=== PATIENT | male | born 1960 | race Caucasian/White ===

== ENCOUNTER → 2022-06-05 07:27 | Outpatient (CLI) | payer OTHER, SELFPAY ==
--- NOTE | 2022-06-05 07:36 | DI.MRI.S_ITS ---
PROCEDURE: MR KNEE RT WO CON INDICATIONS: RT. KNEE PAIN TECHNIQUE: Noncontrast sagittal PD fast spin echo and T2 fast spin echo with fat saturation, sagittal 3-D FLASH with fat saturation; coronal T1 spin echo and PD fast spin echo with fat saturation, and axial PD fast spin echo with fat saturation through the knee. COMPARISON: [facility] [place], CR, XR KNEE 4+ VIEWS RIGHT, 05/28/2022, 10:25. FINDINGS: Image quality: Excellent. Menisci: Amorphous high signal intensity within the peripheral 3rd of the medial meniscal body is present demonstrating inferior articular surface extension, indicating degenerative tearing. Amorphous high signal intensity within the middle and inner thirds of the posterior horn lateral meniscus at the meniscal root ligament insertion site is present, demonstrating inferior articular surface extension, indicating degenerative tearing. Cruciate ligaments: The anterior and posterior cruciate ligaments appear intact. Medial structures: The medial collateral ligament appears intact. Visualized portions of the pes anserinus tendons appear normal. No abnormal bursal fluid. Lateral structures: The lateral collateral ligament demonstrates mild T2 signal elevation at the femoral origin. The long and short heads of the biceps femoris tendon appear intact. The popliteus tendon appears normal. Iliotibial band appears normal. Anterior structures: The quadriceps and patellar tendons appear intact. Patellar alignment is normal. No femoral trochlear dysplasia or ventral trochlear prominence. No edema in the infrapatellar fat pad. Bones and cartilage: No bone marrow contusions or fractures. Intraosseous ganglia within the patellar apex and lateral patellar facet are present. Mild articular cartilage loss diffusely overlies the weight-bearing aspects of the medial and lateral compartments. Moderate to severe articular cartilage loss overlies the patellar apex and lateral patellar facet. Moderate articular cartilage loss overlies the medial patellar facet. Joint space: There is physiologic knee joint fluid. No Johnson's cyst. Normal appearing synovial plicae are incidentally noted. IMPRESSION: 1. Medial and lateral meniscal tearing as described above. 2. Low-grade partial thickness lateral collateral ligament tear. 3. Tricompartmental osteoarthritis with associated articular cartilage loss. Dictated by: Hawa Dos Santos M.D. on 06/08/2022 at 9:40 Approved by: Hawa Dos Santos M.D. on 06/08/2022 at 9:42
== END ==
PROVIDERS: Referring Provider Orthopaedic Surgery; Visit Provider Orthopaedic Surgery
DX: M25.561 Pain in right knee (principal); S83.281A Other tear of lateral meniscus, current injury, right knee, initial encounter; S83.241A Other tear of medial meniscus, current injury, right knee, initial encounter; S83.421A Sprain of lateral collateral ligament of right knee, initial encounter; M17.11 Unilateral primary osteoarthritis, right knee
CPT/HCPCS: 73721

== ENCOUNTER → 2023-08-18 11:26 | Outpatient (CLI) | payer OTHER, SELFPAY ==
--- NOTE | 2023-08-18 | DI.MRI.S_ITS ---
PROCEDURE: MR KNEE RT WO CON INDICATIONS: PAIN IN RIGHT KNEE TECHNIQUE: Noncontrast sagittal PD fast spin echo and T2 fast spin echo with fat saturation, sagittal 3-D FLASH with fat saturation; coronal T1 spin echo and PD fast spin echo with fat saturation, and axial PD fast spin echo with fat saturation through the knee. COMPARISON: [facility], MR, MR KNEE RT WO CON, 06/05/2022, 8:44. FINDINGS: Image quality: Excellent. Menisci: There is signal abnormality involving posterior horn of medial meniscus extending to inferior articulating surface new since previous study series 11 image 24 concerning for oblique tear. The lateral meniscus is intact. The meniscal root ligaments appear intact. Cruciate ligaments: The anterior cruciate ligament is thickened with subtle intrasubstance T2 hyperintense signal. The posterior cruciate ligament is intact. Medial structures: The medial collateral ligament appears intact. The posterior oblique ligament, semimembranosus tendon insertions, oblique popliteal ligament, and meniscocapsular junction appear intact. Visualized portions of the pes anserinus tendons appear normal. No abnormal bursal fluid. Lateral structures: The lateral collateral ligament, long and short heads of the biceps femoris tendon appear intact. The popliteus tendon appears normal; the popliteofibular ligament appears intact. Iliotibial band appears normal. Anterior structures: The quadriceps and patellar tendons appear intact. Patellar alignment is normal. No femoral trochlear dysplasia or ventral trochlear prominence. No edema in the infrapatellar fat pad. Bones and cartilage: No bone marrow contusions or fractures. [id number] tricompartmental osteoarthritis and chondromalacia is seen more notably in medial femoral tibial compartment and patellofemoral compartment near apex. Joint space: There is small to moderate knee joint fluid. No Johnson's cyst. Normal appearing synovial plicae are incidentally noted. IMPRESSION: 1. Suggestion of oblique tear involving posterior horn of medial meniscus extending to inferior articulating surface. No lateral meniscal tear. 2. [id number] tricompartmental osteoarthritis and chondromalacia more notably in medial femoral tibial compartment and patellofemoral compartment near apex. No fracture or dislocation. Small to moderate joint effusion, no loose bodies. 3. Thickened ACL with intrasubstance T2 hyperintense signal suggestive of ACL sprain/degenerative changes. No ACL rupture. The PCL is intact. Dictated by: Manny Farrar M.D. on 08/18/2023 at 14:08 Approved by: Manny Farrar M.D. on 08/18/2023 at 14:44
== END ==
PROVIDERS: Referring Provider Orthopaedic Surgery Adult Reconstructive Orthopaedic Surgery; Visit Provider Orthopaedic Surgery Adult Reconstructive Orthopaedic Surgery
DX: M17.11 Unilateral primary osteoarthritis, right knee (principal); M22.41 Chondromalacia patellae, right knee; M25.561 Pain in right knee; M25.461 Effusion, right knee
CPT/HCPCS: 73721